=== PATIENT | female | born 1980 | race African-American/Black ===

== ENCOUNTER 2016-04-14 08:46 | Emergency (ER) | payer BC ==
--- NOTE | 2016-04-14 09:35 | ER Document Report ---
ED General - General Chief Complaint: Head Injury Stated Complaint: FALL/ HEAD PAIN Time seen by provider: 09:32 Notes: This is a 35-year-old female that presents today with a fall that happened at 1615. Patient states that she was changing a light bulb in her kitchen and fell off the chair that she was standing on. She fell from an approximate height of 4 feet onto tile ashish. She did hit her head. Denies loss of consciousness nausea vomiting. Since the fall she's been having intermittent headaches. Denies aura or light sensitivity. She describes the headache as a bilateral tight band. She does not take any blood thinners. Mode of contraception is IUD. She currently denies headache and pain in all extremities including neck. TRAVEL OUTSIDE OF THE [place] IN LAST 30 DAYS: No - Related Data Allergies/Adverse Reactions: No Known Allergies Allergy (Unverified 05/03/12 11:12) Past Medical History - General Information source: Patient - Social History Smoking Status: Unknown if Ever Smoked Family History: Reviewed & Not Pertinent Surgical Hx: Negative - Immunizations Immunizations up to date: Yes Hx Diphtheria, Pertussis, Tetanus Vaccination: Yes Review of Systems - Review of Systems Constitutional: No symptoms reported Cardiovascular: denies: Chest pain, Syncope, Dizziness Respiratory: No symptoms reported Gastrointestinal: denies: Abdominal pain Neurological/Psychological: denies: Confusion, Lost consciousness, Speech impairment Physical Exam - Vital signs Vitals: Temp Pulse Resp BP Pulse Ox 98.2 F 85 16 143/87 H 100 04/14/16 08:51 04/14/16 08:51 04/14/16 08:51 04/14/16 08:51 04/14/16 08:51 - General General appearance: Appears well - Respiratory Respiratory status: No respiratory distress Breath sounds: Normal - Abdominal Inspection: Normal Bowel sounds: Normal Tenderness: No: Tender, Rebound - Extremities General upper extremity: Normal inspection - Normal sensation bilaterally. General lower extremity: Normal inspection - Normal sensation bilaterally - Neurological Cranial nerves: Normal - CN I-XII are in tact. Cerebellar coordination: Normal. No: Gait ataxia Motor strength normal: LUE - Normal flexion, extension, abduction, and adduction in upper and lower extremity bilaterally., RUE, LLE, RLE - Psychological Associated symptoms: Normal affect, Normal mood - Skin Skin Temperature: Warm Skin Moisture: Dry Skin Color: Normal Course - Re-evaluation Re-evalutation: 04/14/16 11:00 Patient stated she hit the right occipital region of her head. CT imaging was shared with the patient. She was given multiple opportunities to ask questions. Patient stated that she would follow-up with her primary care physician. She was given multiple opportunities to ask questions. - Vital Signs Vital signs: Temp Pulse Resp BP Pulse Ox 97.4 F 60 16 133/96 H 100 04/14/16 11:17 04/14/16 11:17 04/14/16 11:17 04/14/16 11:17 04/14/16 11:17 Discharge - Discharge Clinical Impression: Head injury without fracture of skull, Tension headache Condition: Stable Disposition: HOME, SELF-CARE Additional Instructions: Follow-up with primary care physician. Return to the emergency department if symptoms worsen such as nausea vomiting loss of consciousness etc. Referrals: ADRIEL BONNER MD [Primary Care Provider] - Follow up as needed
[2016-04-14 11:18] VITALS: BP 133/96
== END 2016-04-14 11:17 | disposition home or self-care (01) ==
LOC: ER 08:46
DX: S09.90XA Unspecified injury of head, initial encounter (principal); W07.XXXA Fall from chair, initial encounter; Y93.E9 Activity, other interior property and clothing maintenance; Y92.000 Kitchen of unspecified non-institutional (private) residence as the place of occurrence of the external cause; G44.209 Tension-type headache, unspecified, not intractable; Z97.5 Presence of (intrauterine) contraceptive device
CPT/HCPCS: 70450; 99283

== ENCOUNTER → 2017-10-03 | Outpatient (CLI) | payer BC ==
--- NOTE | 2017-10-04 15:39 | RADIOLOGY REPORT (SQ) ---
EXAM DESCRIPTION: MRI LT LOWER JOINT WITHOUT COMPLETED DATE/TIME: 10/03/2017 8:12 am REASON FOR STUDY: PAIN IN LEFT KNEE (M25.562) M25.562 PAIN IN LEFT KNEE COMPARISON: None. TECHNIQUE: Leftknee images acquired and stored on PACS. Multiplanar images include fat sensitive se quences as T1, water sensitive sequences as FST2 or STIR, cartilage sensitive sequences as FSPD, and gradient echo sequences. LIMITATIONS: None. FINDINGS: JOINT AND BURSAE: No effusion. BONE CORTEX AND MARROW: No alteration of signal to suggest marrow replacement. No worrisome bone lesi ons. No occult fracture. ACL: Intact. No degeneration or ganglion cyst. PCL: Intact. MCL: Mild regional deep soft tissue edema but ligament intact. LCL: Intact. No periligamentous edema or fluid. MEDIAL MENISCUS: No overt tear. LATERAL MENISCUS: Suspect mild degenerative signal. MEDIAL COMPARTMENT: Cartilage preserved. No bone bruises or reactive marrow edema. No osteophytes. LATERAL COMPARTMENT: Cartilage preserved. No bone bruises or reactive marrow edema. No osteophytes. PATELLA: No chondromalacia. No subchondral cysts. Medial and lateral retinacula intact. EXTENSOR MECHANISM: Intact. Quadriceps and patella tendons normal. SOFT TISSUES: Appropriate vascular flow voids. OTHER: No other significant finding. IMPRESSION: Doubt significant internal derangement of the knee. No overt meniscus tear, chondral le marina or ligament disruption. TECHNICAL DOCUMENTATION: JOB ID: [id number] [employer]- All Rights Reserved Reading location - IP/workstation name: [email or web address]
== END ==
LOC: RAD 07:18
PROVIDERS: ATTEND Orthopaedic Surgery
DX: M25.562 Pain in left knee (principal)

== ENCOUNTER 2017-12-02 16:15 | Day surgery (SDC) | payer BC ==
[2017-12-02] MEDS ORDERED: EPINEPHRINE INJ 1 MG/10 ML DISP.SYRIN ONE (16:22)
[2017-12-02] MEDS ORDERED: DIPHENHYDRAMINE HCL 50 MG/ML VIAL ONE (16:22)
[2017-12-02] MEDS ORDERED: ONDANSETRON HCL INJ/PF 4 MG/2 ML SDV ONE (16:22)
[2017-12-02] MEDS ORDERED: GLUCAGON,HUMAN RECOMB 1 MG INJ ONE (16:22)
[2017-12-02] MEDS ORDERED: FENTANYL CITRATE INJ/PF 100 MCG/2 ML AMPUL ONE (16:22)
[2017-12-02] MEDS ORDERED: MIDAZOLAM 2 MG/2 ML INJ ONE (16:22)
[2017-12-02] MEDS ORDERED: FLUMAZENIL INJ 0.5 MG/5 ML VIAL ONE (16:22)
[2017-12-02] MEDS ORDERED: NALOXONE HCL INJ/PF 0.4 MG/1 ML SDV ONE (16:22)
--- NOTE | 2017-12-02 17:28 | Operative Report ---
Operative Report DATE OF SURGERY: 12/02/17 Operative Report: Pre-op diagnosis: Dysphagia Post-op diagnosis: 1. Grade B esophagitis 2. Small hiatal hernia Surgery: Esophagogastroduodenoscopy with biopsy Medications: Versed 2 mg Fentanyl 100 mcg IV push Tissue removed: Antral and gastric body biopsy for pathology Procedure: After informed consent obtained from patient, the throat was sprayed with Hurricane and conscious sedation was achieved. The upper endoscope was inserted into the esophagus under direct vision and advanced into the stomach. The duodenum was entered and examined to the second part. Endoscope was then slowly pulled out of the patient as the mucosa was examined into details. Patient tolerated procedure well. Findings Esophagus: Single ulcer about 1.2 cm in length noted at the GE junction above a small hernia Z-line at: 36 cm Antrum: Normal Body: Normal Fundus: Normal Duodenum first part: Normal Duodenum second part: Normal Plan: Await pathology. Omeprazole 40 mg daily OPERATION: .
[2017-12-02 18:23] VITALS: BP 119/74
== END 2017-12-02 18:25 | disposition home or self-care (01) ==
LOC: END 16:15
PROVIDERS: ATTEND Internal Medicine Gastroenterology
DX: K29.50 Unspecified chronic gastritis without bleeding (principal); K44.9 Diaphragmatic hernia without obstruction or gangrene; B96.81 Helicobacter pylori [H. pylori] as the cause of diseases classified elsewhere; K20.9 Esophagitis, unspecified; I10 Essential (primary) hypertension; E66.01 Morbid (severe) obesity due to excess calories; Z68.43 Body mass index [BMI] 50.0-59.9, adult
CPT/HCPCS: 43239; 88342 ×2; 88305 ×2; J2250; J3010; J0171; J1200; J1610; J2310; J2405; J3490

== ENCOUNTER 2017-12-06 13:03 | Emergency (ER) | payer BC ==
[2017-12-06] MEDS ORDERED: DEXAMETHASONE CONC 1 MG/ML SOLN PO ONE (14:37)
[2017-12-06 15:21] LABS: ABSOLUTE BASOPHILS # (AUTO) 0.1 10^3/uL (0.0-0.2); ABSOLUTE EOSINOPHILS # (AUTO) 0.1 10^3/uL (0.0-0.6); ABSOLUTE LYMPHOCYTES (AUTO) 3.4 10^3/uL (0.5-4.7); ABSOLUTE MONOCYTES (AUTO) 0.6 10^3/uL (0.1-1.4); ABSOLUTE NEUT (AUTO) 4.1 10^3/uL (1.7-8.2); BASOPHILS % (AUTO) 0.8 % (0-2); EOSINOPHILS % (AUTO) 1.8 % (0-6); HEMATOCRIT 45.7 % (36.0-47.0); HEMOGLOBIN 15.5 g/dL (12.0-15.5); MEAN CORPUSCULAR HEMOGLOBIN 27.7 pg (27.0-33.4); MEAN CORPUSCULAR HGB CONC 33.9 g/dL (32.0-36.0); MEAN CORPUSCULAR VOLUME 82 fl (80-97); PLATELET COUNT 364 10^3/uL (150-450); RED BLOOD COUNT 5.59 10^6/uL (3.72-5.28); RED CELL DISTRIBUTION WIDTH 13.9 % (11.5-14.0); SEGMENTED NEUTROPHILS % (AUTO) 49.4 % (42-78); TOTAL CELLS COUNTED % (AUTO) 100 %; WHITE BLOOD COUNT 8.3 10^3/uL (4.0-10.5)
--- NOTE | 2017-12-06 15:22 | ER Document Report ---
ED Medical Screen (RME) - General Chief Complaint: Dizziness Stated Complaint: DIZZINESS,BLURRED VISION Time Seen by Provider: 12/06/17 14:37 TRAVEL OUTSIDE OF THE [place] IN LAST 30 DAYS: No - HPI Onset: Other - This is a woman who underwent endoscopy several days prior presents for evaluation of persistent dizziness and orthostasis, she endorse seems blurry worse when she is standing up and walking, she gets lightheaded and feels faint during that time. She underwent endoscopy and since that time is been having the symptoms. Nothing seems to make them better other than sitting down and resting, standing up seems to make them worse. She does not take any medications to help with this has noted allergies has no known health problems has not had any surgeries. - Related Data Allergies/Adverse Reactions: No Known Allergies Allergy (Verified 12/06/17 13:04) Past Medical History - Past Medical History Cardiac Medical History: Denies: Hx Coronary Artery Disease, Hx Heart Attack, Hx Hypertension Pulmonary Medical History: Denies: Hx Asthma, Hx Bronchitis, Hx COPD, Hx Pneumonia Neurological Medical History: Denies: Hx Cerebrovascular Accident, Hx Seizures Renal/ Medical History: Denies: Hx Peritoneal Dialysis Musculoskeltal Medical History: Denies Hx Arthritis Past Surgical History: Denies: Hx Hysterectomy - Immunizations Immunizations up to date: Yes Hx Diphtheria, Pertussis, Tetanus Vaccination: Yes Influenza Administration Date for 01/2017 - 06/2017 Season: 01/12/17 Physical Exam - Vital signs Vitals: Temp Pulse Resp BP Pulse Ox 99.0 F 90 16 130/94 H 100 12/06/17 13:15 12/06/17 13:15 12/06/17 13:15 12/06/17 13:15 12/06/17 13:15 Course - Re-evaluation Re-evalutation: 12/06/17 15:20 This is a well-appearing 29-year-old female presents for orthostatic symptoms as well as persistent lightheadedness with walking after undergoing endoscopy several days prior. On examination she is a nonfocal neuro exam is alert and appropriate moves all things appropriately. Given her appearance and history will plan for this patient undergo basic screening labs as well as an EKG, assuming these are normal will dose Decadron for her sore throat complained that she is likely had an adverse reaction on the back end of anesthesia. We will defer to future provider disposition determination. - Vital Signs Vital signs: Temp Pulse Resp BP Pulse Ox 99.0 F 90 16 130/94 H 100 12/06/17 13:15 12/06/17 13:15 12/06/17 13:15 12/06/17 13:15 12/06/17 13:15 - Laboratory Result Diagrams: 12/06/17 14:54 12/06/17 14:54
[2017-12-06 15:24] LABS: APPEARANCE,URINE CLEAR; BILIRUBIN,URINE NEGATIVE (NEGATIVE); COLOR,URINE YELLOW; GLUCOSE, URINE >=500 mg/dL (NEGATIVE); KETONES,URINE 20 mg/dL (NEGATIVE); LEUKOCYTE ESTERASE,URINE NEGATIVE (NEGATIVE); NITRITE,URINE NEGATIVE (NEGATIVE); PROTEIN,URINE NEGATIVE (NEGATIVE); URINE SPECIFIC GRAVITY 1.035; UROBILINOGEN,URINE NEGATIVE mg/dL (<2.0)
[2017-12-06 15:38] LABS: ANION GAP 16 (5-19); BLOOD UREA NITROGEN 9 mg/dL (7-20); CALCIUM 10.1 mg/dL (8.4-10.2); CARBON DIOXIDE 21 mmol/L (22-30); CHLORIDE 101 mmol/L (98-107); POTASSIUM 4.5 mmol/L (3.6-5.0); SODIUM 138.2 mmol/L (137-145)
[2017-12-06 15:49] LABS: GLUCOSE 456 mg/dL (75-110)
[2017-12-06] MEDS ORDERED: NORMAL SALINE 1000 ML 1,000 ML IV ONE (15:52)
--- NOTE | 2017-12-06 16:13 | ER Document Report ---
ED Dizziness/Weakness - General Chief Complaint: Dizziness Stated Complaint: DIZZINESS,BLURRED VISION Time Seen by Provider: 12/06/17 14:37 Mode of Arrival: Ambulatory Information source: Patient TRAVEL OUTSIDE OF THE [place] IN LAST 30 DAYS: No - HPI Patient complains to provider of: Dizziness Onset: Last week Onset/Duration: Gradual, Persistent Quality of pain: No pain Pain Level: Denies Associated symptoms: Dizzy Baseline gait: Walks w/o assistance Notes: 37-year-old female presents to the emergency room today complaining of dizziness with lightheadedness in the sensation of passing out at times, she also reports increased thirst and increased urination, symptoms have been going on for the past week or so, she denies any nausea or vomiting, no diarrhea, no dysuria, she recently had an upper endoscopy secondary to sensation of lumps in her throat, and is taking Prilosec but takes no other medications at the current time - Related Data Allergies/Adverse Reactions: No Known Allergies Allergy (Verified 12/06/17 13:04) Past Medical History - General Information source: Patient - Social History Smoking Status: Never Smoker Family History: Reviewed & Not Pertinent Patient has suicidal ideation: No Patient has homicidal ideation: No - Past Medical History Cardiac Medical History: Denies: Hx Coronary Artery Disease, Hx Heart Attack, Hx Hypertension Pulmonary Medical History: Denies: Hx Asthma, Hx Bronchitis, Hx COPD, Hx Pneumonia Neurological Medical History: Denies: Hx Cerebrovascular Accident, Hx Seizures Renal/ Medical History: Denies: Hx Peritoneal Dialysis Musculoskeletal Medical History: Denies Hx Arthritis Past Surgical History: Denies: Hx Hysterectomy - Immunizations Immunizations up to date: Yes Hx Diphtheria, Pertussis, Tetanus Vaccination: Yes Review of Systems - Review of Systems Constitutional: No symptoms reported EENT: No symptoms reported Cardiovascular: Dizziness Respiratory: No symptoms reported Gastrointestinal: No symptoms reported Genitourinary: Frequency Female Genitourinary: No symptoms reported Musculoskeletal: No symptoms reported Skin: No symptoms reported Hematologic/Lymphatic: No symptoms reported Neurological/Psychological: No symptoms reported -: Yes All other systems reviewed and negative Physical Exam - Vital signs Vitals: Temp Pulse Resp BP Pulse Ox 99.0 F 90 16 130/94 H 100 12/06/17 13:15 12/06/17 13:15 12/06/17 13:15 12/06/17 13:15 12/06/17 13:15 Interpretation: Normal - General General appearance: Appears well, Alert - HEENT Head: Normocephalic, Atraumatic Eyes: Normal Pupils: PERRL - Respiratory Respiratory status: No respiratory distress Chest status: Nontender Breath sounds: Normal Chest palpation: Normal - Cardiovascular Rhythm: Regular Heart sounds: Normal auscultation Murmur: No - Abdominal Inspection: Morbidly Obese Distension: No distension Bowel sounds: Normal Tenderness: Nontender Organomegaly: No organomegaly - Back Back: Normal, Nontender - Extremities General upper extremity: Normal inspection, Nontender, Normal color, Normal ROM , Normal temperature General lower extremity: Normal inspection, Nontender, Normal color, Normal ROM , Normal temperature, Normal weight bearing. No: Chidi's sign - Neurological Neuro grossly intact: Yes Cognition: Normal Orientation: AAOx4 [place] Coma Scale Eye Opening: Spontaneous Rajwinder Coma Scale Verbal: Oriented [place] Coma Scale Motor: Obeys Commands [place] Coma Scale Total: 15 Speech: Normal Motor strength normal: LUE, RUE, LLE, RLE Sensory: Normal - Psychological Associated symptoms: Normal affect, Normal mood - Skin Skin Temperature: Warm Skin Moisture: Dry Skin Color: Normal Course - Re-evaluation Re-evalutation: 12/06/17 20:49 Patient with new onset diabetes with blood sugar greater than 400, given IV fluids in the department as well as a prescription for metformin and blood glucose testing supplies, advised to change her diet and exercise more, advised weight loss as well, patient given list of primary care providers for follow-up , advised to return if any additional concerns, patient acknowledges understanding and agreement with this plan - Vital Signs Vital signs: Temp Pulse Resp BP Pulse Ox 98.0 F 76 18 115/70 100 12/06/17 19:26 12/06/17 19:26 12/06/17 19:26 12/06/17 19:26 12/06/17 19:26 - Laboratory Result Diagrams: 12/06/17 14:54 12/06/17 14:54 Laboratory results interpreted by me: 12/06/17 12/06/17 12/06/17 14:54 14:54 14:54 RBC 5.59 H Carbon Dioxide 21 L Glucose 456 H* POC Glucose Urine Glucose (UA) >=500 H Urine Ketones 20 H Urine Blood MODERATE H 12/06/17 19:03 RBC Carbon Dioxide Glucose POC Glucose 470 H* Urine Glucose (UA) Urine Ketones Urine Blood Discharge - Discharge Clinical Impression: New onset type 2 diabetes mellitus Condition: Stable Disposition: HOME, SELF-CARE Instructions: Diabetes ([facility]), Control of Diabetes During Illness ([facility]), Family Physicians / Practices, Hyperglycemia ([facility]) Additional Instructions: Follow up with your primary care provider in one to 2 days. Return to the emergency room immediately if symptoms worsen or any additional concerns. Prescriptions: Blood Sugar Diagnostic [Blood Glucose Test Strip] 1 strip ACHS PRN #1 pkg PRN Reason: Blood-Glucose Meter, Drum-Type [Accu-Chek] 1 kit ASDIR PRN #1 kit PRN Reason: Lancets [Accu-Chek] 1 each MC DAILY #60 each Metformin HCl [Metformin HCl ER] 500 mg PO BID #60 tab.er.24h Forms: Return to Work Referrals: BRO LOPEZ MD [Primary Care Provider] - Follow up as needed
[2017-12-06] MEDS ORDERED: METFORMIN HCL 500 MG TABLET PO ONE (18:09)
[2017-12-06 19:31] VITALS: BP 115/70
--- NOTE | 2017-12-06 20:47 | EKG REPORT ---
SEVERITY:- ABNORMAL ECG - SINUS RHYTHM PROBABLE LEFT ATRIAL ABNORMALITY NONSPECIFIC T ABNORMALITIES, INFERIOR LEADS : Confirmed by: Ora Marie 06-Dec-2017 20:47:14
== END 2017-12-06 19:32 | disposition home or self-care (01) ==
LOC: ER 13:03
DX: E11.9 Type 2 diabetes mellitus without complications (principal); R42 Dizziness and giddiness; H53.8 Other visual disturbances
CPT/HCPCS: 93005; 99284; 96360; 96361; 36415; 82962; 85025; 80048; 81001; 93010; J7030; J8540

== ENCOUNTER 2017-12-08 10:58 | Emergency (ER) | payer BC ==
[2017-12-08] MEDS ORDERED: RINGERS SOLUTION,LACTATED 1,000 ML IV ONE (11:52)
--- NOTE | 2017-12-08 11:52 | ER Document Report ---
ED Medical Screen (RME) - General Chief Complaint: High Blood Sugar Stated Complaint: ELEVATED BLOOD SUGAR Time Seen by Provider: 12/08/17 11:51 Notes: 37-year-old female to emergency department chief complaint of hypoglycemia. Patient was seen here on Friday. Has continued to feel bad. Went to her OB/ [facility] because she had an appointment today and blood sugar was read as high in the office. Sent here for further evaluation/repeat evaluation. Patient states that she has had blurred vision, polydipsia, polyuria and generalized feeling weak. Has never felt like this before. Denies any chest pain or abdominal pain. No vomiting at this time. Patient is tearful and nervous about this new diagnosis and she does not know why this would come on all of a sudden. I have greeted and performed a rapid initial assessment of this patient. A comprehensive ED assessment and evaluation of the patient, analysis of test results and completion of the medical decision making process will be conducted by additional ED providers. TRAVEL OUTSIDE OF THE [place] IN LAST 30 DAYS: No - Related Data Allergies/Adverse Reactions: No Known Allergies Allergy (Verified 12/08/17 10:58) Past Medical History - Past Medical History Cardiac Medical History: Denies: Hx Coronary Artery Disease, Hx Heart Attack, Hx Hypertension Pulmonary Medical History: Denies: Hx Asthma, Hx Bronchitis, Hx COPD, Hx Pneumonia Neurological Medical History: Denies: Hx Cerebrovascular Accident, Hx Seizures Renal/ Medical History: Denies: Hx Peritoneal Dialysis Musculoskeltal Medical History: Denies Hx Arthritis Past Surgical History: Denies: Hx Hysterectomy - Immunizations Immunizations up to date: Yes Hx Diphtheria, Pertussis, Tetanus Vaccination: Yes Influenza Administration Date for 01/2017 - 06/2017 Season: 01/12/17 Physical Exam - Vital signs Vitals: Temp Pulse Resp BP Pulse Ox 98.0 F 88 18 140/83 H 100 12/08/17 11:23 12/08/17 11:23 12/08/17 11:23 12/08/17 11:23 12/08/17 11:23 Course - Vital Signs Vital signs: Temp Pulse Resp BP Pulse Ox 98.0 F 88 18 140/83 H 100 12/08/17 11:23 12/08/17 11:23 12/08/17 11:23 12/08/17 11:23 12/08/17 11:23 Doctor's Discharge - Discharge Referrals: BRO LOPEZ MD [ACTIVE STAFF] - Follow up as needed
[2017-12-08 12:40] LABS: ABSOLUTE BASOPHILS # (AUTO) 0.1 10^3/uL (0.0-0.2); ABSOLUTE EOSINOPHILS # (AUTO) 0.1 10^3/uL (0.0-0.6); ABSOLUTE MONOCYTES (AUTO) 0.5 10^3/uL (0.1-1.4); ABSOLUTE NEUT (AUTO) 5.3 10^3/uL (1.7-8.2); BASOPHILS % (AUTO) 0.5 % (0-2); EOSINOPHILS % (AUTO) 0.7 % (0-6); LYMPHOCYTES % (AUTO) 40.7 % (13-45); MEAN CORPUSCULAR HEMOGLOBIN 27.6 pg (27.0-33.4); MEAN CORPUSCULAR HGB CONC 33.3 g/dL (32.0-36.0); MEAN CORPUSCULAR VOLUME 83 fl (80-97); MONOCYTES % (AUTO) 4.7 % (3-13); PLATELET COUNT 364 10^3/uL (150-450); RED BLOOD COUNT 5.43 10^6/uL (3.72-5.28); RED CELL DISTRIBUTION WIDTH 14.3 % (11.5-14.0); SEGMENTED NEUTROPHILS % (AUTO) 53.4 % (42-78); TOTAL CELLS COUNTED % (AUTO) 100 %; WHITE BLOOD COUNT 9.9 10^3/uL (4.0-10.5)
[2017-12-08] MEDS ORDERED: ONDANSETRON HCL INJ/PF 4 MG/2 ML SDV IV ONE (12:45)
[2017-12-08 12:46] LABS: APPEARANCE,URINE CLEAR; BILIRUBIN,URINE NEGATIVE (NEGATIVE); COLOR,URINE YELLOW; GLUCOSE, URINE >=500 mg/dL (NEGATIVE); KETONES,URINE 80 mg/dL (NEGATIVE); LEUKOCYTE ESTERASE,URINE NEGATIVE (NEGATIVE); NITRITE,URINE NEGATIVE (NEGATIVE); PROTEIN,URINE NEGATIVE (NEGATIVE); URINE SPECIFIC GRAVITY 1.029; UROBILINOGEN,URINE NEGATIVE mg/dL (<2.0)
--- NOTE | 2017-12-08 12:46 | ER Document Report ---
ED Blood Sugar Problem - General Chief Complaint: High Blood Sugar Stated Complaint: ELEVATED BLOOD SUGAR Time Seen by Provider: 12/08/17 11:51 Mode of Arrival: Ambulatory Information source: Patient Notes: She presents complaining of elevated blood sugar. Patient states she was here 2 days ago and diagnosed with diabetes and given prescriptions for glucometer as well as metformin. She states she did not get the medications filled and she had an appointment with her primary doctor today. Whenever she saw her primary doctor they did a Accu-Chek and her blood sugar would not read because it was too elevated. Her primary doctor advised her to come here for further evaluation. Patient states that she continues to have increased thirst, urinary frequency, blurred vision and generalized weakness. Patient denies any recent illness. Patient states that since been told she was diabetic she has been increasing her water intake and changing the foods that she eats. Patient states that she does normally go to the eye doctor every year. Patient denies any eye injury or eye pain. TRAVEL OUTSIDE OF THE [place] IN LAST 30 DAYS: No - HPI Onset: Other - 3 days Onset/Duration: Persistent Quality of pain: No pain Pain Level: Denies Associated symptoms: Increased thirst, Frequent urination. denies: Confusion, Difficulty speaking, Vomiting Similar symptoms previously: Yes Recently seen / treated by doctor: Yes - Related Data Allergies/Adverse Reactions: No Known Allergies Allergy (Verified 12/08/17 10:58) Past Medical History - General Information source: Patient - Social History Smoking Status: Never Smoker Frequency of alcohol use: None Drug Abuse: None Occupation: Housekeeping Lives with: Family Family History: Reviewed & Not Pertinent Patient has suicidal ideation: No Patient has homicidal ideation: No - Past Medical History Cardiac Medical History: Denies: Hx Coronary Artery Disease, Hx Heart Attack, Hx Hypertension Pulmonary Medical History: Denies: Hx Asthma, Hx Bronchitis, Hx COPD, Hx Pneumonia Neurological Medical History: Denies: Hx Cerebrovascular Accident, Hx Seizures Renal/ Medical History: Reports: Hx Ovarian Cysts. Denies: Hx Peritoneal Dialysis GI Medical History: Reports: Hx Hiatal Hernia Musculoskeletal Medical History: Denies Hx Arthritis Surgical Hx: Negative Past Surgical History: Denies: Hx Hysterectomy - Immunizations Immunizations up to date: Yes Hx Diphtheria, Pertussis, Tetanus Vaccination: Yes Review of Systems - Review of Systems Constitutional: Weakness. denies: Fever EENT: No symptoms reported Cardiovascular: Palpitations - Patient reports that she will occasionally have palpitations with ambulation. denies: Chest pain Respiratory: Short of breath - With ambulation. denies: Cough Gastrointestinal: Nausea. denies: Abdominal pain, Vomiting Genitourinary: Frequency. denies: Dysuria Female Genitourinary: No symptoms reported. denies: , Vaginal discharge Musculoskeletal: No symptoms reported. denies: Back pain Skin: No symptoms reported Hematologic/Lymphatic: No symptoms reported Neurological/Psychological: No symptoms reported Physical Exam - Vital signs Vitals: Temp Pulse Resp BP Pulse Ox 98.0 F 88 18 140/83 H 100 12/08/17 11:23 12/08/17 11:23 12/08/17 11:23 12/08/17 11:23 12/08/17 11:23 - General General appearance: Appears well, Alert In distress: None - HEENT Head: Normocephalic, Atraumatic Eyes: Normal Conjunctiva: Normal Pupils: PERRL Ears: Normal External canal: Normal Nasal: Normal Mouth/Lips: Normal Mucous membranes: Normal Neck: Normal, Supple. No: Lymphadenopathy - Respiratory Respiratory status: No respiratory distress Chest status: Nontender Breath sounds: Normal. No: Rales, Rhonchi, Stridor, Wheezing Chest palpation: Normal - Cardiovascular Rhythm: Regular Heart sounds: S1 appreciated, S2 appreciated Murmur: No - Abdominal Inspection: Morbidly Obese Distension: No distension Bowel sounds: Normal Tenderness: Nontender Organomegaly: No organomegaly - Back Back: Normal, Nontender. No: CVA tenderness - Extremities General upper extremity: Normal inspection, Nontender, Normal ROM General lower extremity: Normal inspection, Nontender, Normal ROM - Neurological Neuro grossly intact: Yes Cognition: Normal Rajwinder Coma Scale Eye Opening: Spontaneous Sherman Coma Scale Verbal: Oriented Rajwinder Coma Scale Motor: Obeys Commands Rajwinder Coma Scale Total: 15 - Psychological Associated symptoms: Normal affect, Normal mood - Skin Skin Temperature: Warm Skin Moisture: Dry Skin Color: Normal Course - Re-evaluation Re-evalutation: 12/08/17 14:48 Attempted to get patient prepared for discharge. Patient states that she still has lightheadedness when she ambulates and that feels like her heart races when she is ambulating. Patient road tested, patient maintain oxygen saturation 100 % heart rate did increase from the mid 90s-110. Patient states that when she is at home she does get dyspneic when she ambulates. Additional tests were ordered. 12/08/17 16:30 Patient CTA reviewed, no pneumonia, no PE,. Pt with cardiomegaly without evidence of failure. EKG is normal sinus rhythm at this time. Troponin test is negative. Patient without any complaints of chest pain. Patient encouraged to follow-up with hydrogen cell tender for further evaluation as well as a primary doctor to manage her diabetes. Patient encouraged to keep a log of her blood sugars as well as to get her prescription for metformin filled and take as prescribed. 12/08/17 16:34 Pt complains of headache, additional medications ordered 12/08/17 16:54 Patient vomited her oral medications. Additional medications ordered at this time. Patient states headache started about 20 minutes ago. 12/08/17 17:47 Nausea symptoms resolved, headache pain improved. - Vital Signs Vital signs: Temp Pulse Resp BP Pulse Ox 98.8 F 78 18 106/67 100 12/08/17 17:51 12/08/17 17:51 12/08/17 11:23 12/08/17 17:51 12/08/17 17:51 - Laboratory Result Diagrams: 12/08/17 12:10 12/08/17 12:10 Laboratory results interpreted by me: 12/08/17 12/08/17 12/08/17 12:10 12:10 12:10 RBC 5.43 H RDW 14.3 H Sodium 134.9 L Chloride 95 L Carbon Dioxide 20 L Glucose 395 H POC Glucose Hemoglobin A1c % 10.7 H Creatine Kinase Urine Glucose (UA) Urine Ketones Urine Blood 12/08/17 12/08/17 12/08/17 12:10 12:10 13:08 RBC RDW Sodium Chloride Carbon Dioxide Glucose POC Glucose 369 H Hemoglobin A1c % Creatine Kinase 167 H Urine Glucose (UA) >=500 H Urine Ketones 80 H Urine Blood SMALL H 12/08/17 16:30 Labs- Entire Visit 12/08/17 12/08/17 12/08/17 12:10 12:10 12:10 WBC 9.9 RBC 5.43 H Hgb 15.0 Hct 45.0 MCV 83 MCH 27.6 MCHC 33.3 RDW 14.3 H Plt Count 364 Seg Neutrophils % 53.4 Lymphocytes % 40.7 Monocytes % 4.7 Eosinophils % 0.7 Basophils % 0.5 Absolute Neutrophils 5.3 Absolute Lymphocytes 4.0 Absolute Monocytes 0.5 Absolute Eosinophils 0.1 Absolute Basophils 0.1 VBG pH VBG pCO2 VBG HCO3 VBG Base Excess Sodium 134.9 L Potassium 3.9 Chloride 95 L Carbon Dioxide 20 L Anion Gap 19 BUN 16 Creatinine 0.75 Est GFR ( Amer) > 60 Est GFR (Non-Af Amer) > 60 Glucose 395 H POC Glucose Hemoglobin A1c % 10.7 H Insulin Level Calcium 9.6 Magnesium 1.7 Total Bilirubin 0.7 Direct Bilirubin 0.4 Neonat Total Bilirubin Not Reportable Neonat Direct Bilirubin Not Reportable Neonat Indirect Bili Not Reportable AST 20 ALT 37 Alkaline Phosphatase 112 Creatine Kinase CK-MB (CK-2) Troponin I Total Protein 7.9 Albumin 4.2 TSH Urine Color Urine Appearance Urine pH Ur Specific Fine Urine Protein Urine Glucose (UA) Urine Ketones Urine Blood Urine Nitrite Urine Bilirubin Urine Urobilinogen Ur Leukocyte Esterase Urine WBC (Auto) Urine RBC (Auto) Urine Bacteria (Auto) Squamous Epi Cells Auto Urine Mucus (Auto) Urine Ascorbic Acid Urine HCG, Qual 12/08/17 12/08/17 12/08/17 12:10 12:10 12:10 WBC RBC Hgb Hct MCV MCH MCHC RDW Plt Count Seg Neutrophils % Lymphocytes % Monocytes % Eosinophils % Basophils % Absolute Neutrophils Absolute Lymphocytes Absolute Monocytes Absolute Eosinophils Absolute Basophils VBG pH VBG pCO2 VBG HCO3 VBG Base Excess Sodium Potassium Chloride Carbon Dioxide Anion Gap BUN Creatinine Est GFR ( Amer) Est GFR (Non-Af Amer) Glucose POC Glucose Hemoglobin A1c % Insulin Level 6.82 Calcium Magnesium Total Bilirubin Direct Bilirubin Neonat Total Bilirubin Neonat Direct Bilirubin Neonat Indirect Bili AST ALT Alkaline Phosphatase Creatine Kinase CK-MB (CK-2) Troponin I Total Protein Albumin TSH 2.80 Urine Color YELLOW Urine Appearance CLEAR Urine pH 5.0 Ur Specific Fine 1.029 Urine Protein NEGATIVE Urine Glucose (UA) >=500 H Urine Ketones 80 H Urine Blood SMALL H Urine Nitrite NEGATIVE Urine Bilirubin NEGATIVE Urine Urobilinogen NEGATIVE Ur Leukocyte Esterase NEGATIVE Urine WBC (Auto) 1 Urine RBC (Auto) 0 Urine Bacteria (Auto) TRACE Squamous Epi Cells Auto 2 Urine Mucus (Auto) RARE Urine Ascorbic Acid NEGATIVE Urine HCG, Qual NEGATIVE 12/08/17 12/08/17 12/08/17 12:10 12:10 13:08 WBC RBC Hgb Hct MCV MCH MCHC RDW Plt Count Seg Neutrophils % Lymphocytes % Monocytes % Eosinophils % Basophils % Absolute Neutrophils Absolute Lymphocytes Absolute Monocytes Absolute Eosinophils Absolute Basophils VBG pH VBG pCO2 VBG HCO3 VBG Base Excess Sodium Potassium Chloride Carbon Dioxide Anion Gap BUN Creatinine Est GFR ( Amer) Est GFR (Non-Af Amer) Glucose POC Glucose 369 H Hemoglobin A1c % Insulin Level Calcium Magnesium Total Bilirubin Direct Bilirubin Neonat Total Bilirubin Neonat Direct Bilirubin Neonat Indirect Bili AST ALT Alkaline Phosphatase Creatine Kinase 167 H CK-MB (CK-2) 2.23 Troponin I < 0.012 Total Protein Albumin TSH Urine Color Urine Appearance Urine pH Ur Specific Fine Urine Protein Urine Glucose (UA) Urine Ketones Urine Blood Urine Nitrite Urine Bilirubin Urine Urobilinogen Ur Leukocyte Esterase Urine WBC (Auto) Urine RBC (Auto) Urine Bacteria (Auto) Squamous Epi Cells Auto Urine Mucus (Auto) Urine Ascorbic Acid Urine HCG, Qual 12/08/17 13:12 WBC RBC Hgb Hct MCV MCH MCHC RDW Plt Count Seg Neutrophils % Lymphocytes % Monocytes % Eosinophils % Basophils % Absolute Neutrophils Absolute Lymphocytes Absolute Monocytes Absolute Eosinophils Absolute Basophils VBG pH 7.31 VBG pCO2 46.9 VBG HCO3 23.0 VBG Base Excess -3.4 Sodium Potassium Chloride Carbon Dioxide Anion Gap BUN Creatinine Est GFR ( Amer) Est GFR (Non-Af Amer) Glucose POC Glucose Hemoglobin A1c % Insulin Level Calcium Magnesium Total Bilirubin Direct Bilirubin Neonat Total Bilirubin Neonat Direct Bilirubin Neonat Indirect Bili AST ALT Alkaline Phosphatase Creatine Kinase CK-MB (CK-2) Troponin I Total Protein Albumin TSH Urine Color Urine Appearance Urine pH Ur Specific Fine Urine Protein Urine Glucose (UA) Urine Ketones Urine Blood Urine Nitrite Urine Bilirubin Urine Urobilinogen Ur Leukocyte Esterase Urine WBC (Auto) Urine RBC (Auto) Urine Bacteria (Auto) Squamous Epi Cells Auto Urine Mucus (Auto) Urine Ascorbic Acid Urine HCG, Qual - Diagnostic Test Radiology reviewed: Reports reviewed Discharge - Discharge Clinical Impression: New onset type 2 diabetes mellitus, Dyspnea on exertion, Decreased vision, Cardiomegaly Condition: Stable Disposition: HOME, SELF-CARE Instructions: Diabetes ([facility]), Dyspnea, Nonspecific ([facility]), Family Physicians / Practices Additional Instructions: Return immediately for any new or worsening symptoms Followup with your primary care provider, call tomorrow to make a followup appointment Follow-up with a hydrogen cell tender for further evaluation, call tomorrow for an appointment Keep a log of your blood sugars, check your blood sugar at least twice a day. Get your metformin filled and take as prescribed. Eat a diabetic diet. Prescriptions: Ondansetron HCl [Zofran 4 mg Tablet] 1 - 2 tab PO Q6 PRN #15 tablet PRN Reason: Forms: Return to Work Referrals: EWELINA CAUSEY MD [ACTIVE STAFF] - [facility] - Follow up in 3-5 days
[2017-12-08 12:58] LABS: ALANINE AMINOTRANSFERASE 37 U/L (9-52); ALBUMIN 4.2 g/dL (3.5-5.0); ALKALINE PHOSPHATASE 112 U/L (38-126); ASPARTATE AMINO TRANSFERASE 20 U/L (14-36); BILIRUBIN,DIRECT 0.4 mg/dL (0.0-0.4); BILIRUBIN,TOTAL 0.7 mg/dL (0.2-1.3); BLOOD UREA NITROGEN 16 mg/dL (7-20); CALCIUM 9.6 mg/dL (8.4-10.2); CARBON DIOXIDE 20 mmol/L (22-30); CHLORIDE 95 mmol/L (98-107); GLUCOSE 395 mg/dL (75-110); POTASSIUM 3.9 mmol/L (3.6-5.0); SODIUM 134.9 mmol/L (137-145); TOTAL PROTEIN 7.9 g/dL (6.3-8.2)
[2017-12-08] MEDS ORDERED: NORMAL SALINE 1000 ML 1,000 ML IV ONE (13:15)
[2017-12-08 13:17] LABS: ANION GAP 19 (5-19)
[2017-12-08 13:30] LABS: VENOUS BLOOD BASE EXCESS -3.4 mmol/L; VENOUS BLOOD PCO2 46.9 mmHg (35-63); VENOUS BLOOD PH 7.31 (7.30-7.42)
[2017-12-08] MEDS ORDERED: NORMAL SALINE 1000 ML 1,000 ML IV PRN (14:46)
[2017-12-08 15:26] LABS: CREATINE KINASE MB 2.23 ng/mL (<4.55)
[2017-12-08 15:31] LABS: TROPONIN I < 0.012 ng/mL
--- NOTE | 2017-12-08 15:42 | RADIOLOGY REPORT (SQ) ---
EXAM DESCRIPTION: CTA CHEST COMPLETED DATE/TIME: 12/08/2017 3:29 pm REASON FOR STUDY: exertional dyspnea, tachycardia COMPARISON: None. TECHNIQUE: CT scan of the chest performed using helical scanning technique with dynamic intravenous contrast injection. Images reviewed with lung, soft tissue and bone windows. Reconstructed coronal and sagittal MPR images reviewed. Additional 3 dimensional post-processing performed to develop Maximal Intensity Projection images (CO P). All images stored on PACS. All CT scanners at this facility use dose modulation, iterative reconstruction, and/or weight based d osing when appropriate to reduce radiation dose to as low as reasonably achievable (ALARA). [facility]: Dose Right [facility]: CareDose [facility]: Dose Right [facility]: Teradose 4D [facility]: [employer] CONTRAST TYPE AND DOSE: contrast/concentration: Isovue 350.00 mg/ml; Total Contrast Delivered: 90.0 ml; Total Saline Delivered: 100.0 ml Contrast bolus optimized for the pulmonary arteries. Not diagnostic for the aorta. RENAL FUNCTION: GFR > 60. RADIATION DOSE: CT Rad equipment meets quality standard of care and radiation dose reduction techniq ues were employed. CTDIvol: 38.0 - 41.3 mGy. DLP: 1267 mGy-cm. . LIMITATIONS: Motion. FINDINGS: LUNGS AND PLEURA: No masses, infiltrates, or pneumothorax. No pleural effusions or pleura l calcifications. AORTA AND GREAT VESSELS: Right aortic arch. No aneurysm. HEART: Cardiomegaly. No significant coronary artery calcifications. PULMONARY ARTERIES: No emboli visualized in the main pulmonary arteries or the segmental branches. HILAR AND MEDIASTINAL STRUCTURES: No identified masses or abnormal nodes. HARDWARE: None in the chest. UPPER ABDOMEN: No significant findings. Limited exam. THYROID AND OTHER SOFT TISSUES: No masses. No adenopathy. BONES: No acute findings. 3D MIPS: Confirm above findings. OTHER: No other significant finding. IMPRESSION: 1. No PE. 2. Cardiomegaly. Right aortic arch. COMMENT: Quality ID # [id number]: Final reports with documentation of one or more dose reduction techniques (e.g., Automated exposure control, adjustment of the mA and/or kV according to patient size, use of iterative reconstruction technique) TECHNICAL DOCUMENTATION: JOB ID: [id number] [employer]- All Rights Reserved Reading location - IP/workstation name: [email or web address]
[2017-12-08] MEDS ORDERED: METFORMIN HCL 500 MG TABLET PO ONE (16:32)
[2017-12-08] MEDS ORDERED: ACETAMINOPHEN 325 MG TABLET PO ONE (16:39)
[2017-12-08] MEDS ORDERED: KETOROLAC TROMETHAMINE INJ/PF 30 MG/1 ML SDV IV ONE (16:39)
[2017-12-08] MEDS ORDERED: DIPHENHYDRAMINE HCL 50 MG/ML VIAL IV ONE (16:54)
[2017-12-08] MEDS ORDERED: PROCHLORPERAZINE EDISYLATE INJ 10 MG/2 ML VIAL IV ONE (16:54)
[2017-12-08 18:04] VITALS: BP 106/67
--- NOTE | 2017-12-08 19:28 | EKG REPORT ---
SEVERITY:- NORMAL ECG - SINUS RHYTHM : Confirmed by: Lasha Hughes MD 08-Dec-2017 19:27:25
== END 2017-12-08 18:04 | disposition home or self-care (01) ==
LOC: ER 10:58
DX: E11.9 Type 2 diabetes mellitus without complications (principal); R06.09 Other forms of dyspnea; H54.7 Unspecified visual loss; I51.7 Cardiomegaly; R42 Dizziness and giddiness
CPT/HCPCS: 93005; 99284; 96361; 96374; 96375; 36415; 82553; 82962; 82550; 83735; 84443; 85025; 81025; 80053; 81001; 84484; 83036; 82803; 83525; 71275; 93010; J1200; J1885; J0780; J2405; J7030; J7120

== ENCOUNTER → 2017-12-20 | Outpatient (CLI) | payer BC ==
[2017-12-20 07:52] LABS: ALANINE AMINOTRANSFERASE 60 U/L (9-52); ALBUMIN 3.3 g/dL (3.5-5.0); ALKALINE PHOSPHATASE 57 U/L (38-126); ANION GAP 9 (5-19); ASPARTATE AMINO TRANSFERASE 36 U/L (14-36); BILIRUBIN,DIRECT 0.2 mg/dL (0.0-0.4); BILIRUBIN,TOTAL 0.4 mg/dL (0.2-1.3); BLOOD UREA NITROGEN 11 mg/dL (7-20); CALCIUM 9.2 mg/dL (8.4-10.2); CARBON DIOXIDE 23 mmol/L (22-30); CHLORIDE 106 mmol/L (98-107); GLUCOSE 159 mg/dL (75-110); POTASSIUM 3.9 mmol/L (3.6-5.0); SODIUM 137.8 mmol/L (137-145); TOTAL PROTEIN 6.1 g/dL (6.3-8.2)
== END ==
LOC: LAB 07:06
PROVIDERS: ATTEND Internal Medicine
DX: E11.9 Type 2 diabetes mellitus without complications (principal)
CPT/HCPCS: 36415; 80053; 83036

== ENCOUNTER 2018-09-02 08:13 | Emergency (ER) | payer BC ==
[2018-09-02 08:20] VITALS: BP 147/101
[2018-09-02] MEDS ORDERED: LIDOCAINE 5% (700 MG) TRANSDERMAL ADH..PATCH TP ONE (09:33)
[2018-09-02] MEDS ORDERED: IBUPROFEN 800 MG TABLET PO ONE (09:33)
--- NOTE | 2018-09-02 09:36 | ER Document Report ---
HPI - HPI Patient complains to provider of: left upper back pain Time Seen by Provider: 09/02/18 09:14 Onset: Yesterday Onset/Duration: Sudden Quality of pain: Achy Pain Level: 4 Context: Patient states that she was lifting a trash bag into the trash can and whenever she went to throw it she felt a sharp pulling in the left upper back area. Patient states that she slept in a recliner last night due to the pain. Patient states that she has persistent pain to the left upper back area. Associated Symptoms: Other - Left upper back Exacerbated by: Movement Relieved by: Denies Similar symptoms previously: No Recently seen / treated by doctor: No - ROS ROS below otherwise negative: Yes Systems Reviewed and Negative: Yes All other systems reviewed and negative - CONSTITUTIONAL Constitutional: DENIES: Fever - NEURO Neurology: DENIES: Weakness - GASTROINTESTINAL Gastrointestinal: DENIES: Nausea - REPRODUCTIVE Reproductive: DENIES: : - MUSCULOSKELETAL Musculoskeletal: REPORTS: Back Pain - DERM Skin Color: Normal Skin Problems: None Past Medical History - General Information source: Patient - Social History Smoking Status: Never Smoker Frequency of alcohol use: None Drug Abuse: None Family History: Reviewed & Not Pertinent Endocrine Medical History: Reports: Hx Diabetes Mellitus Type 2 Renal/ Medical History: Reports: Hx Ovarian Cysts. Denies: Hx Peritoneal Dialysis GI Medical History: Reports: Hx Hiatal Hernia Musculoskeletal Medical History: Denies Hx Arthritis Psychiatric Medical History: Reports: Hx Depression Surgical Hx: Negative Past Surgical History: Denies: Hx Hysterectomy - Immunizations Immunizations up to date: Yes Hx Diphtheria, Pertussis, Tetanus Vaccination: Yes Vertical Provider Document - CONSTITUTIONAL Agree With Documented VS: Yes Exam Limitations: No Limitations General Appearance: WD/WN, No Apparent Distress - INFECTION CONTROL TRAVEL OUTSIDE OF THE [place] IN LAST 30 DAYS: No - HEENT HEENT: Atraumatic, Normocephalic - NECK Neck: Supple. negative: Lymphadenopathy-Left, Lymphadenopathy-Right Notes: Left trapezius muscle tenderness with spasm. Tenderness increases with lateral rotation of the head. No spinal midline tenderness step-off or deformity - RESPIRATORY Respiratory: Breath Sounds Normal, No Respiratory Distress - CARDIOVASCULAR Cardiovascular: Regular Rate, Regular Rhythm Pulses: Normal: Radial - BACK Back: Abnormal Inspection - Left trapezius muscle tenderness with spasm - MUSCULOSKELETAL/EXTREMETIES Musculoskeletal/Extremeties: HERBERT MARCUM - NEURO Level of Consciousness: Awake, Alert, Appropriate Motor/Sensory: No Motor Deficit - DERM Integumentary: Warm, Dry, No Rash Course - Re-evaluation Re-evalutation: 09/02/18 09:34 Patient presents with symptoms worrisome for trapezius muscle spasm. Patient denies any traumatic injury. No meningismus or fever. Pain is reproduced with palpation or lateral rotation of the head or movement of the left upper extremity. - Vital Signs Vital signs: Temp Pulse Resp BP Pulse Ox 98.1 F 95 18 147/101 H 99 09/02/18 08:15 09/02/18 08:15 09/02/18 08:15 09/02/18 08:15 09/02/18 08:15 Discharge - Discharge Clinical Impression: Trapezius muscle spasm Condition: Stable Disposition: HOME, SELF-CARE Instructions: Anti-Inflammatory Medication ([facility]), Muscle Relaxers ([facility]), Muscle Strain ([facility]) Additional Instructions: Return immediately for any new or worsening symptoms Followup with your primary care provider, call tomorrow to make a followup appointment Prescriptions: Lidocaine [Lidoderm 5% (700 mg) Transdermal Patch] 1 patch TP DAILY PRN #10 adh..patch PRN Reason: Metaxalone [Skelaxin 800 mg Tablet] 800 mg PO ASDIR PRN #15 tablet PRN Reason: Naproxen [Naprosyn 250 Nmg Tablet] 1 tab PO BID #14 tablet Referrals: WYATT OH FNP-C [NO LOCAL MD] - Follow up as needed
== END 2018-09-02 10:09 | disposition home or self-care (01) ==
LOC: ER 08:13
DX: M62.830 Muscle spasm of back (principal); M54.6 Pain in thoracic spine; X50.9XXA Other and unspecified overexertion or strenuous movements or postures, initial encounter; E11.9 Type 2 diabetes mellitus without complications
CPT/HCPCS: 99283

== ENCOUNTER → 2019-06-26 | Outpatient (CLI) | payer BC ==
--- NOTE | 2019-06-26 09:13 | RADIOLOGY REPORT (SQ) ---
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 TECHNIQUE: CT scanogram of the bilateral lower extremities is performed including pelvis to ankles. Measurements of femur, tibia, and entire lower extremities performed by the radiologist and saved to PACS. All CT scanners at this facility use dose modulation, iterative reconstruction, and/or weight based d osing when appropriate to reduce radiation dose to as low as reasonably achievable (ALARA). [facility]: Dose Right [facility]: CareDose [facility]: Dose Right [facility]: Teradose 4D [facility]: [employer] RADIATION DOSE: mGy. LIMITATIONS: None. FINDINGS: RIGHT: FEMUR: 48.3 cm. TIBIA: 39.4 cm. TOTAL RIGHT LOWER EXTREMITY LENGTH: 88 cm. LEFT: FEMUR: 48.5 cm. TIBIA: 39.1 cm. TOTAL LEFT LOWER EXTREMITY LENGTH: 88.2 cm. IMPRESSION: LEG LENGTH MEASUREMENTS DETAILED ABOVE. TECHNICAL DOCUMENTATION: JOB ID: [id number] Quality ID # [id number]: Final reports with documentation of one or more dose reduction techniques (e.g., Au tomated exposure control, adjustment of the mA and/or kV according to patient size, use of iterative reconstruction technique) 2010 [employer]- All Rights Reserved Reading location - IP/workstation name: [email or web address]
== END ==
LOC: RAD 08:13
PROVIDERS: ATTEND Podiatrist Foot & Ankle Surgery
DX: Q72.819 Congenital shortening of unspecified lower limb (principal)
CPT/HCPCS: 77073